=== PATIENT | male | born 1980 | race Two or more races ===

== ENCOUNTER 2018-07-05 11:31 | Inpatient (IN) | payer OTHER ==
[2018-07-05 11:53] VITALS: BMI 37.8
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
[2018-07-05] MEDS ORDERED: ACETAMINOPHEN 325 MG TABLET (FP) PO PRN (13:33)
[2018-07-05] MEDS ORDERED: LOPERAMIDE HCL 2 MG CAPSULE PO PRN (13:33)
[2018-07-05] MEDS ORDERED: IBUPROFEN 400 MG TABLET (FP) PO PRN (13:33)
[2018-07-05] MEDS ORDERED: P-EPHED 60MG/TRIPROLIDI 2.5MG TABLET PO PRN (13:33)
[2018-07-05] MEDS ORDERED: guaiFENesin/D-METHORPHAN HB 10 ML UNIT-DOSE CUPS PO PRN (13:33)
[2018-07-05] MEDS ORDERED: MENTHOL/PHENOL 1 EACH UD MM PRN (13:33)
[2018-07-05] MEDS ORDERED: MAGNESIUM CITRATE 300 ML BOTTLE PO PRN (13:33)
[2018-07-05] MEDS ORDERED: MAGNESIUM HYDROX 2400MG/30ML ORAL SUSPENSION 30 ML CUP PO PRN (13:33)
[2018-07-05] MEDS ORDERED: MAG HYDROX/AL HYDROX/SIMETH 30 ML UNIT-DOSE CUP PO PRN (13:33)
[2018-07-05] MEDS ORDERED: METHADONE HCL 10 MG TABLET (FOR DETOX USE ONLY) PO ONE ×2 (14:45→23:00)
[2018-07-05] MEDS: diazePAM 5 MG TABLET PO PRN (14:54)
[2018-07-05] MEDS ORDERED: MELATONIN 5 MG TABLETS PO PRN (22:00)
[2018-07-05] MEDS: THIAMINE HCL 100 MG TABLET (FP) PO SCH (22:25)
[2018-07-05] MEDS: ATORVASTATIN CA 10 MG TABLET (FP) PO SCH (22:25)
[2018-07-06] MEDS: PANTOPRAZOLE 40 MG TABLET (FP) PO SCH (09:59)
[2018-07-06] MEDS: PRENATAL VITAMINS W/ FOLIC ACID TABLET (FP) PO SCH (09:59)
[2018-07-06] MEDS ORDERED: METHADONE HCL 10 MG TABLET (FOR DETOX USE ONLY) PO ONE (10:00)
[2018-07-06 10:11] LABS: HEMATOCRIT 42.6 % (35.4-49); HEMOGLOBIN 14.8 GM/dL (11.7-16.9); MCH 30.5 pg (25.7-33.7); MCHC 34.7 g/dl (32.0-35.9); MEAN PLT VOLUME 8.5 fl (7.5-11.1); PLATELET COUNT 407 K/MM3 (134-434); RBC 4.84 M/mm3 (4.00-5.60); WHITE BLOOD COUNT 8.9 K/mm3 (4.0-10.0)
[2018-07-06 10:57] LABS: ALBUMIN 4.1 g/dl (3.4-5.0); ALK PHOS 100 U/L (45-117); ANION GAP 9 MMOL/L (8-16); BILIRUBIN,TOTAL 0.3 mg/dL (0.2-1); BLOOD UREA NITROGEN 11 mg/dL (7-18); CALCIUM 9.4 mg/dL (8.5-10.1); CHLORIDE 110 mmol/L (98-107); CO2 22 mmol/L (21-32); CREATININE 0.8 mg/dL (0.55-1.3); GLUCOSE,RANDOM 187 mg/dL (74-106); POTASSIUM 3.7 mmol/L (3.5-5.1); SGOT/AST 20 U/L (15-37); SGPT/ALT 30 U/L (13-61); SODIUM 140 mmol/L (136-145); TOT PROT 7.4 g/dl (6.4-8.2)
--- NOTE | 2018-07-06 12:46 | PN ---
BHS COWS - Scale Resting Pulse: 1= [place] 81-100 Sweatin=Flushed/Facial Moisture Restless Observation: 1= Difficult to Sit Still Pupil Size: 0= Normal to Room Light Bone or Joint Aches: 2= Severe Diffuse Aches Runny Nose/ Eye Tearin= Nasal Congestion GI Upset > 30mins: 0= None Tremor Observation of Outstretched Hands: 2= Slight Tremor Visible Yawning Observation: 2= >3x During Session Anxiety or Irritability: 2=Irritable/Anxious Goose Flesh Skin: 0=Smooth Skin COWS Score: 13 BHS Progress Note (SOAP) Subjective: sweats irritable agitation chills/shakes body aches interrupted sleep Objective: 07/06/18 12:46 Vital Signs Temperature 98.2 F 07/06/18 09:22 Pulse Rate 84 07/06/18 09:22 Respiratory Rate 19 07/06/18 09:22 Blood Pressure 112/69 07/06/18 09:22 O2 Sat by Pulse Oximetry (%) Laboratory Tests 07/05/18 07/05/18 07/06/18 13:16 16:35 05:13 WBC RBC Hgb Hct MCV MCH MCHC RDW Plt Count MPV Sodium Potassium Chloride Carbon Dioxide Anion Gap BUN Creatinine Creat Clearance w eGFR POC Glucometer 202 103 89 Random Glucose Calcium Total Bilirubin AST ALT Alkaline Phosphatase Total Protein Albumin 07/06/18 07/06/18 06:00 06:00 WBC 8.9 RBC 4.84 Hgb 14.8 Hct 42.6 MCV 88.0 MCH 30.5 MCHC 34.7 RDW 14.0 Plt Count 407 MPV 8.5 Sodium 140 Potassium 3.7 Chloride 110 H Carbon Dioxide 22 Anion Gap 9 BUN 11 Creatinine 0.8 Creat Clearance w eGFR > 60 POC Glucometer Random Glucose 187 H Calcium 9.4 Total Bilirubin 0.3 AST 20 ALT 30 Alkaline Phosphatase 100 Total Protein 7.4 Albumin 4.1 aaox3 ambulating no acute distress Assessment: 07/06/18 12:46 withdrawal sx Plan: continue detox increase fluids
[2018-07-06 16:38] LABS: URINE APPEARANCE CLEAR; URINE BILIRUBIN NEGATIVE (<2.0 mg/dL); URINE COLOR LTYELLOW; URINE GLUCOSE (UA) NEGATIVE (NEGATIVE); URINE KETONE NEGATIVE (NEGATIVE); URINE LEUK ESTERASE NEGATIVE (NEGATIVE); URINE NITRITE NEGATIVE (NEGATIVE); URINE PROTEIN NEGATIVE (NEGATIVE); URINE UROBILINOGEN NEGATIVE mg/dL (0.2-1.0)
[2018-07-06] MEDS: diazePAM 5 MG TABLET PO PRN ×2 (17:15→22:04)
[2018-07-06] MEDS: NICOTINE POLACRILEX 2 MG GUM BUC PRN (17:57)
[2018-07-06] MEDS: ATORVASTATIN CA 10 MG TABLET (FP) PO SCH (22:02)
[2018-07-06] MEDS: THIAMINE HCL 100 MG TABLET (FP) PO SCH (22:02)
[2018-07-07] MEDS: diazePAM 5 MG TABLET PO PRN ×3 (05:13→22:17)
[2018-07-07] MEDS ORDERED: METHADONE HCL 5 MG TABLET (FOR DETOX USE ONLY) PO ONE (10:00)
[2018-07-07] MEDS: PANTOPRAZOLE 40 MG TABLET (FP) PO SCH (10:14)
[2018-07-07] MEDS: PRENATAL VITAMINS W/ FOLIC ACID TABLET (FP) PO SCH (10:14)
--- NOTE | 2018-07-07 14:10 | PN ---
BHS COWS - Scale Resting Pulse: 0= [place] 80 or Below Sweatin=Flushed/Facial Moisture Restless Observation: 3= Extraneous Movement Pupil Size: 0= Normal to Room Light Bone or Joint Aches: 1= Mild Discomfort Runny Nose/ Eye Tearin= Nasal Congestion GI Upset > 30mins: 0= None Tremor Observation of Outstretched Hands: 1= Tremor [place], Not Seen Yawning Observation: 1= 1-2x During Session Anxiety or Irritability: 1=Feels Anxious/Irritable Goose Flesh Skin: 0=Smooth Skin COWS Score: 10 BHS Progress Note (SOAP) Subjective: sweats shakes Objective: 07/07/18 14:08 A & O x 3 Ambulating steadily restless Vital Signs Temperature 98.1 F 07/07/18 10:29 Pulse Rate 87 07/07/18 10:29 Respiratory Rate 18 07/07/18 10:29 Blood Pressure 145/88 07/07/18 10:29 O2 Sat by Pulse Oximetry (%) Laboratory Last Values WBC 8.9 K/mm3 (4.0-10.0) 07/06/18 06:00 RBC 4.84 M/mm3 (4.00-5.60) 07/06/18 06:00 Hgb 14.8 GM/dL (11.7-16.9) 07/06/18 06:00 Hct 42.6 % (35.4-49) 07/06/18 06:00 MCV 88.0 fl (80-96) 07/06/18 06:00 MCH 30.5 pg (25.7-33.7) 07/06/18 06:00 MCHC 34.7 g/dl (32.0-35.9) 07/06/18 06:00 RDW 14.0 % (11.9-15.9) 07/06/18 06:00 Plt Count 407 K/MM3 (134-434) 07/06/18 06:00 MPV 8.5 fl (7.5-11.1) 07/06/18 06:00 Sodium 140 mmol/L (136-145) 07/06/18 06:00 Potassium 3.7 mmol/L (3.5-5.1) 07/06/18 06:00 Chloride 110 mmol/L (98-107) H 07/06/18 06:00 Carbon Dioxide 22 mmol/L (21-32) 07/06/18 06:00 Anion Gap 9 MMOL/L (8-16) 07/06/18 06:00 BUN 11 mg/dL (7-18) 07/06/18 06:00 Creatinine 0.8 mg/dL (0.55-1.3) 07/06/18 06:00 Creat Clearance w eGFR > 60 (>60) 07/06/18 06:00 POC Glucometer 96 UNITS (80-120) 07/07/18 05:12 Random Glucose 187 mg/dL (74-106) H 07/06/18 06:00 Calcium 9.4 mg/dL (8.5-10.1) 07/06/18 06:00 Total Bilirubin 0.3 mg/dL (0.2-1) 07/06/18 06:00 AST 20 U/L (15-37) 07/06/18 06:00 ALT 30 U/L (13-61) 07/06/18 06:00 Alkaline Phosphatase 100 U/L (45-117) 07/06/18 06:00 Total Protein 7.4 g/dl (6.4-8.2) 07/06/18 06:00 Albumin 4.1 g/dl (3.4-5.0) 07/06/18 06:00 Urine Color Ltyellow 07/05/18 23:22 Urine Appearance Clear 07/05/18 23:22 Urine pH 7.0 (5.0-8.0) 07/05/18 23:22 Ur Specific [place] 1.010 (1.010-1.035) 07/05/18 23:22 Urine Protein Negative (NEGATIVE) 07/05/18 23:22 Urine Glucose (UA) Negative (NEGATIVE) 07/05/18 23:22 Urine Ketones Negative (NEGATIVE) 07/05/18 23:22 Urine Blood Negative (NEGATIVE) 07/05/18 23:22 Urine Nitrite Negative (NEGATIVE) 07/05/18 23:22 Urine Bilirubin Negative (<2.0 mg/dL) 07/05/18 23:22 Urine Urobilinogen Negative mg/dL (0.2-1.0) 07/05/18 23:22 Ur Leukocyte Esterase Negative (NEGATIVE) 07/05/18 23:22 RPR Titer Nonreactive (NONREACTIVE) 07/06/18 06:00 labs noted Assessment: 07/07/18 14:10 withdrawal sx Hyperglycemia - DMII Plan: continue detox Continue hyperglycemics increase hydration
--- NOTE | 2018-07-07 14:15 | PN ---
S Progress Note Note: Pt's EKG noted with slight high elevated IL interval. No EKG on file s/p this is pt's first visit Pt denies any complaints - no chest pain/discomfort, no dizziness, VS WNL. Will monitor symptoms and await cardiology report Vital Signs Period Temp Pulse Resp BP Sys/Chau Pulse Ox Last 24 Hr 97.9 F-98.1 F 62-87 18-18 109-145/66-88
--- NOTE | 2018-07-07 14:43 | EKG ---
Test Reason : Blood Pressure : / mmHG Vent. Rate : 081 BPM Atrial Rate : 081 BPM P-R Int : 152 ms QRS Dur : 090 ms QT Int : 410 ms P-R-T Axes : 052 016 041 degrees QTc Int : 476 ms NORMAL SINUS RHYTHM CANNOT RULE OUT INFERIOR INFARCT , AGE UNDETERMINED ABNORMAL ECG NO PREVIOUS ECGS AVAILABLE Confirmed by Thompson Shultz MD ([id number]) on 07/07/2018 2:43:37 PM Referred By: PAMELA LANDAVERDE Confirmed By:Thompson Shultz MD
[2018-07-07] MEDS: NICOTINE POLACRILEX 2 MG GUM BUC PRN (15:36)
[2018-07-07] MEDS: ATORVASTATIN CA 10 MG TABLET (FP) PO SCH (22:18)
[2018-07-07] MEDS: THIAMINE HCL 100 MG TABLET (FP) PO SCH (22:18)
[2018-07-08] MEDS: diazePAM 5 MG TABLET PO PRN ×2 (05:45→12:43)
[2018-07-08] MEDS: PRENATAL VITAMINS W/ FOLIC ACID TABLET (FP) PO SCH (09:47)
[2018-07-08] MEDS: PANTOPRAZOLE 40 MG TABLET (FP) PO SCH (09:47)
[2018-07-08] MEDS ORDERED: METHADONE HCL 5 MG TABLET (FOR DETOX USE ONLY) PO ONE (10:00)
[2018-07-08] MEDS: NICOTINE POLACRILEX 2 MG GUM BUC PRN ×2 (12:03→17:14)
--- NOTE | 2018-07-08 17:04 | PN ---
S Progress Note (SOAP) Subjective: Anxious, interrupted sleep Objective: 07/08/18 17:02 Last Vital Signs Temp Pulse Resp BP Pulse Ox 98.2 F 79 16 120/60 07/08/18 13:28 07/08/18 13:28 07/08/18 13:28 07/08/18 13:28 Laboratory Tests 07/05/18 07/05/18 07/05/18 13:16 16:35 23:22 WBC RBC Hgb Hct MCV MCH MCHC RDW Plt Count MPV Sodium Potassium Chloride Carbon Dioxide Anion Gap BUN Creatinine Creat Clearance w eGFR POC Glucometer 202 103 Random Glucose Calcium Total Bilirubin AST ALT Alkaline Phosphatase Total Protein Albumin Urine Color Ltyellow Urine Appearance Clear Urine pH 7.0 Ur Specific [place] 1.010 Urine Protein Negative Urine Glucose (UA) Negative Urine Ketones Negative Urine Blood Negative Urine Nitrite Negative Urine Bilirubin Negative Urine Urobilinogen Negative Ur Leukocyte Esterase Negative RPR Titer 07/06/18 07/06/18 07/06/18 05:13 06:00 06:00 WBC 8.9 RBC 4.84 Hgb 14.8 Hct 42.6 MCV 88.0 MCH 30.5 MCHC 34.7 RDW 14.0 Plt Count 407 MPV 8.5 Sodium 140 Potassium 3.7 Chloride 110 H Carbon Dioxide 22 Anion Gap 9 BUN 11 Creatinine 0.8 Creat Clearance w eGFR > 60 POC Glucometer 89 Random Glucose 187 H Calcium 9.4 Total Bilirubin 0.3 AST 20 ALT 30 Alkaline Phosphatase 100 Total Protein 7.4 Albumin 4.1 Urine Color Urine Appearance Urine pH Ur Specific [place] Urine Protein Urine Glucose (UA) Urine Ketones Urine Blood Urine Nitrite Urine Bilirubin Urine Urobilinogen Ur Leukocyte Esterase RPR Titer 07/06/18 07/06/18 07/07/18 06:00 16:47 05:12 WBC RBC Hgb Hct MCV MCH MCHC RDW Plt Count MPV Sodium Potassium Chloride Carbon Dioxide Anion Gap BUN Creatinine Creat Clearance w eGFR POC Glucometer 95 96 Random Glucose Calcium Total Bilirubin AST ALT Alkaline Phosphatase Total Protein Albumin Urine Color Urine Appearance Urine pH Ur Specific [place] Urine Protein Urine Glucose (UA) Urine Ketones Urine Blood Urine Nitrite Urine Bilirubin Urine Urobilinogen Ur Leukocyte Esterase RPR Titer Nonreactive 07/07/18 07/08/18 07/08/18 16:56 05:44 16:45 WBC RBC Hgb Hct MCV MCH MCHC RDW Plt Count MPV Sodium Potassium Chloride Carbon Dioxide Anion Gap BUN Creatinine Creat Clearance w eGFR POC Glucometer 107 106 116 Random Glucose Calcium Total Bilirubin AST ALT Alkaline Phosphatase Total Protein Albumin Urine Color Urine Appearance Urine pH Ur Specific [place] Urine Protein Urine Glucose (UA) Urine Ketones Urine Blood Urine Nitrite Urine Bilirubin Urine Urobilinogen Ur Leukocyte Esterase RPR Titer Labs reviewed: hyperglycemia Assessment: 07/08/18 17:03 Withdrawal symptoms Noted with hyperglycemia Plan: Continue detox Encouraged PO water hydration Hyperglycemia secondary to DMT2: continue diabetic regimen
[2018-07-08] MEDS: THIAMINE HCL 100 MG TABLET (FP) PO SCH (22:17)
[2018-07-08] MEDS: ATORVASTATIN CA 10 MG TABLET (FP) PO SCH (22:17)
[2018-07-09] MEDS ORDERED: METHADONE HCL 10 MG TABLET (FOR DETOX USE ONLY) PO ONE (10:00)
[2018-07-09 10:09] VITALS: BP 116/64; PULSE 80; TEMP 99.9
[2018-07-09] MEDS: PANTOPRAZOLE 40 MG TABLET (FP) PO SCH (10:25)
[2018-07-09] MEDS: PRENATAL VITAMINS W/ FOLIC ACID TABLET (FP) PO SCH (10:25)
--- NOTE | 2018-07-09 11:22 | PN ---
BHS Progress Note Note: pt states he wants to go home and if feeling so much better. no s/s of withdrawals noted. discharged ordered.
--- NOTE | 2018-07-09 11:24 | DS ---
[facility] Detox Discharge Summary Admission Date: 07/05/18 Discharge Date: 07/09/18 - History Present History: Opioid Dependence - Physical Exam Results Vital Signs: Vital Signs Temperature 99.9 F H 07/09/18 10:32 Pulse Rate 80 07/09/18 10:32 Respiratory Rate 18 07/09/18 10:32 Blood Pressure 116/64 07/09/18 10:32 O2 Sat by Pulse Oximetry (%) - Treatment Hospital Course: Detox Protocol Followed, Detoxed Safely, Responded well, Discharged Condition Good, Rehab Referral Accepted - Medication Discharge Medications: Ambulatory Orders Benztropine Mesylate [Cogentin -] 0.5 mg PO BID 07/05/18 Chlorpromazine [Thorazine -] 100 mg PO HS 07/05/18 Haloperidol Decanoate [Haldol Decanoate (Long-Acting) -] 200 mg IM Q28D@1000 12/14 [place] Carbonate [Eskalith -] 600 mg PO BID 07/05/18 Pantoprazole Sodium [Protonix -] 40 mg PO DAILY 07/05/18 Simvastatin [Zocor -] 20 mg PO HS 07/05/18 metFORMIN HCL [Metformin HCl] 850 mg PO DAILY 07/05/18 - Diagnosis (1) DM2 (diabetes mellitus, type 2) Current Visit: Yes Status: Chronic Qualifiers: Diabetes mellitus bed bug exterminator insulin use: unspecified bed bug exterminator insulin use status (2) Fracture of right elbow Current Visit: Yes Status: Acute (3) History of attempted suicide Current Visit: Yes Status: Acute (4) Opioid dependence with withdrawal Current Visit: Yes Status: Chronic (5) Cocaine dependence Current Visit: Yes Status: Chronic Qualifiers: Substance use status: uncomplicated Qualified Code(s): F14.20 - Cocaine dependence, uncomplicated (6) Nicotine dependence Current Visit: Yes Status: Chronic Qualifiers: Nicotine product type: cigarettes Substance use status: uncomplicated Qualified Code(s): F17.210 - Nicotine dependence, cigarettes, uncomplicated (7) Obesity (BMI 30-39.9) Current Visit: Yes Status: Chronic (8) PPD positive Current Visit: Yes Status: Chronic (9) Schizophrenia Current Visit: Yes Status: Chronic - AMA Did Patient Leave Against Medical Advice: No (going home. f/u with PCP)
[2018-07-10] MEDS ORDERED: METHADONE HCL 5 MG TABLET (FOR DETOX USE ONLY) PO ONE (06:00)
== END 2018-07-09 12:35 | disposition home or self-care (01) | DRG 773 ==
LOC: YASAS 11:31 → Y6N 14:00
PROVIDERS: ADMIT Surgery; ATTEND Surgery
PROC: HZ2ZZZZ Detoxification Services for Substance Abuse Treatment (ICD-10-PCS; principal; 2018-07-05)
DX: F11.23 Opioid dependence with withdrawal (principal); F14.20 Cocaine dependence, uncomplicated; F17.210 Nicotine dependence, cigarettes, uncomplicated; F20.0 Paranoid schizophrenia; E11.65 Type 2 diabetes mellitus with hyperglycemia; R76.11 Nonspecific reaction to tuberculin skin test without active tuberculosis; E66.9 Obesity, unspecified; Z68.37 Body mass index [BMI] 37.0-37.9, adult; Z79.84 Long term (current) use of oral hypoglycemic drugs; Z91.5 Personal history of self-harm
CPT/HCPCS: 36415; 80053; 81003; 82962; 85027; 86593; 93005; 93010